=== PATIENT | female | born 1945 | race Caucasian/White ===

== ENCOUNTER 2018-09-19 09:48 | Inpatient (IN) | payer MEDICARE, OTHER ==
[2018-09-15 11:40] LABS: Basophils # (auto) 0.1 uL; Basophils % (auto) 0.9 % (0.0-2.0); Eosinophils # (auto) 0.2 uL; Eosinophils % (auto) 1.9 % (0.0-7.0); Hematocrit 41.1 % (36.0-46.0); Hemoglobin 13.7 g/dL (12.2-16.2); Lymphocytes % (auto) 37.8 % (10.0-50.0); Mean Corpuscular Hemoglobin 30.9 pg (28.0-32.0); Mean Corpuscular Hgb Conc. 33.3 g/dL (32.0-36.0); Mean Corpuscular Volume 92.8 fL (80.0-100.0); Monocytes # (auto) 0.5 uL; Monocytes % (auto) 6.7 % (0.0-12.0); Neutrophils # (auto) 4.3 uL; Neutrophils % (auto) 52.7 % (37.0-80.0); Nucleated Red Blood Cells % 0.1 %; Platelet Count (auto) 221 10^3/uL (140-450); Red Blood Cells 4.42 10^6/uL (4.0-5.20); Red Cell Distribution Width 14.8 % (11.8-14.3); White Blood Cell 8.1 10^3/uL (4.4-10.8)
[2018-09-15 11:45] LABS: Urine Bacteria FEW /hpf (None Seen); Urine Blood Negative /uL (Negative); Urine WBC 1 /hpf (0 - 5)
[2018-09-15 11:51] LABS: Partial Thromboplastin Time 26.3 sec (23.64-32.05)
[2018-09-15 11:56] LABS: Albumin 3.8 g/dL (3.4-5.0); Calcium 9.5 mg/dL (8.5-10.1)
[2018-09-15 11:59] LABS: BUN/Creatinine Ratio 23.2; Bilirubin, Total 0.6 mg/dL (0.2-1.0); Total Protein 7.8 g/dL (6.4-8.2)
[~2018-09-19] VITALS: Ht 162.6 cm; Wt 97.4 kg
[~2018-09-19 09:48] MED LIST: ALLO300T2 PO; ASPI-404 PO; CHLO25TA22 PO; DILT240C35 PO; ESTR0.3T PO; LEVO112T4 PO; METO-159 PO; PANT40TA2 PO; ROSU10TA16 PO; TELM20TA PO
[2018-09-19] MEDS ORDERED: ceFAZolin 1GM/50ML 100 ML IV ONE (10:22)
[2018-09-19] MEDS ORDERED: MIDAZOLAM HCL 1MG/1ML-2 ML VIAL ONE (10:51)
[2018-09-19] MEDS ORDERED: fentaNYL CITRATE 100 MCG/2 ML VL ONE (10:52)
[2018-09-19] MEDS ORDERED: LIDOCAINE HCL 2% TOP JELLY 5ML TOP ONE (10:53)
[2018-09-19] MEDS ORDERED: LIDOCAINE 2% (LOCAL ANESTH.) PF 5ml SDV ONE (10:53)
[2018-09-19] MEDS ORDERED: HYDROmorphone HCL 2 MG/ML VL ONE (11:43)
[2018-09-19] MEDS ORDERED: NALOXONE HCL 0.4 MG/ML VIAL ONE (14:01)
[2018-09-19] MEDS ORDERED: KETOROLAC TROMETH 30 MG/ML 1ML VIAL IV ONE (14:30)
[2018-09-19] MEDS ORDERED: ONDANSETRON HCL 4 MG/2 ML VIAL IV PRN (14:30)
[2018-09-19] MEDS ORDERED: hydrALAZINE HCL 20 MG/ML VL IV PRN (14:30)
[2018-09-19] MEDS ORDERED: ONDANSETRON HCL 4 MG/2 ML VIAL IM ONE (14:30)
[2018-09-19] MEDS ORDERED: MORPHINE SULF INJ 2 MG/ML SYRINGE 1ML IV PRN (14:30)
[2018-09-19] MEDS ORDERED: METOCLOPRAMIDE HCL 5MG/ml INJ 2ml VIAL IV ONE (14:30)
[2018-09-19] MEDS ORDERED: HYDROmorphone HCL 2 MG/ML VL IV PRN (14:30)
[2018-09-19] MEDS ORDERED: TEMAZEPAM 15 MG CAP PO PRN (14:30)
[2018-09-19] MEDS ORDERED: ePHEDrine SULFATE 50 MG/ML AMP IV PRN (14:45)
[2018-09-19] MEDS ORDERED: ACCU-CHEK COMFORT CURVE STRIP VI ONE (14:45)
[2018-09-19] MEDS ORDERED: LABETALOL HCL 5 MG/ML 4ML SYRINGE IV PRN (14:45)
[2018-09-19 15:30] VITALS: BP 117/62
--- NOTE | 2018-09-19 15:30 | NUR ---
Med Surg admit from [facility] admitted to medsurg/tele after SBAR received. Patient oriented to CHRIS LOWE RN primary RN, unit, room, bed. Patient is s/p total right knee arthroplasty. Patient has SHAYNA bandage to right knee. Patient is easy to arouse by calling name. Patient is slightly agitated, states she just wants to rest. at bedside, able to answer most of the admission questions. Patient is alert and oriented x4. Patient is on 3L Oxymizer , oxygen saturation 95%, Blood Pressure 117/62, Heart Rate 65, respirations 15. Patient has a Small catheter in place, patent and draining clear yellow urine. Patient has 20g IV to the right hand, saline locked. Reviewed plan of care with patient, patient verbalized understanding. Bed in low and locked position, call light within reach. Bed alarm on for safety. Will continue to monitor Q1 hour and PRN.
--- NOTE | 2018-09-19 15:32 | NUR ---
CPM Machine CPM machine ordered for patient. Per report from PACU nurse, CPM machine is not available today. Will endorse to shift production associate RN.
--- NOTE | 2018-09-19 15:40 | NUR ---
Incentive Spirometer Incentive Spirometer provided to patient, patient educated on how to use. Patient verbalized understanding.
[2018-09-19] MEDS ORDERED: MORPHINE SULFATE 4 MG/ML SYR/VIAL IV ONE (16:00)
[2018-09-19 17:36] VITALS: BP 110/54
[2018-09-19] MEDS: ceFAZolin 1GM/50ML 50 ML IV SCH ×2 (17:51→21:02)
[2018-09-19] MEDS: LACTATED RINGER'S 1,000 ML IV SCH (17:51)
--- NOTE | 2018-09-19 18:05 | NUR ---
Rounds Patient resting in bed awake, alert and oriented x4. No signs or symptoms of distress noted at this time. Patient denies pain at this. Patient is on 3L Oxymizer, patient denies shortness of breath at this time. Family at bedside. Bed alarm on for safety. Will continue to monitor Q1 hour and PRN.
--- NOTE | 2018-09-19 18:52 | NUR ---
Dinner Tray Patient did not receive dinner tray, contacted food and nutrition. Tray will be sent up.
--- NOTE | 2018-09-19 19:28 | NUR ---
Closing Note Report given to material handler 1st shift RN. No signs or symptoms of distress noted at this time.
--- NOTE | 2018-09-19 19:29 | NUR ---
Shift Opening note: Received report from RN Estefany and assumed care of patient. at the bedside.No c/o pain at this time but having nausea.Surgical site assessed of bleeding.Dressing dry ,clean and intact.Patient instructed on need to inform staff immediately for any pain, bleeding at surgical site. Patient verbalized understanding.
[2018-09-19 20:00] VITALS: BP_SYST 110; BP_SYST 113; BP_DIAS 47; BP_DIAS 49
[2018-09-19] MEDS: SODIUM CHLOR 0.9% PF (SALINE LOCK) 10ML VIAL/SYR IV SCH (21:03)
[2018-09-19] MEDS: oxyCODONE ER 10 MG TAB PO SCH (21:03)
[2018-09-19] MEDS: DOCUSATE SOD 100 MG CAP PO SCH (21:03)
[2018-09-19 21:06] VITALS: BP 113/49
[2018-09-19 22:00] VITALS: BP 113/49
[2018-09-20] VITALS (8 sets, daily range): BP systolic 101–140; BP diastolic 49–86
[2018-09-20] MEDS: THROAT LOZENGES(CEPASTAT) MT PRN ×2 (00:42→03:46)
[2018-09-20] MEDS: ceFAZolin 1GM/50ML 50 ML IV SCH (02:45)
[2018-09-20] MEDS: HYDROcodone-ACET 10/325MG TAB PO PRN ×2 (03:38→15:13)
--- NOTE | 2018-09-20 03:38 | NUR ---
Pain: Patient called c/o pain in her R hip, pain scale 7/10. [place] 10/325 1 tab PO administered.
[2018-09-20 06:36] LABS: Hematocrit 34.5 % (36.0-46.0); Hemoglobin 11.5 g/dL (12.2-16.2)
[2018-09-20] MEDS: SODIUM CHLOR 0.9% PF (SALINE LOCK) 10ML VIAL/SYR IV SCH ×3 (06:37→22:14)
[2018-09-20] MEDS: LACTATED RINGER'S 1,000 ML IV SCH (06:57)
--- NOTE | 2018-09-20 07:32 | NUR ---
Opening Shift Note Assumed care of patient, awake and alert. No S/S of distress/SOB or pain. Instructed on POC and to call for assist PRN, will continue to monitor for changes Q1hr and PRN.
--- NOTE | 2018-09-20 09:00 | NUR ---
CPM Per patient CPM machine delivered to house prior to admission with instructions. No CPM machine at bedside. Will call ortho department.
--- NOTE | 2018-09-20 09:50 | NUR ---
Oxygen Patient oxygen 94% on Oxymizer. Patient placed on 2L N/C. Patient educated on use of I.S., patient verbalized understanding.
[2018-09-20] MEDS: oxyCODONE ER 10 MG TAB PO SCH ×2 (09:54→22:00)
[2018-09-20] MEDS: ENOXAPARIN SOD 40 MG/0.4 ML SYRINGE SC SCH (09:54)
[2018-09-20] MEDS: DOCUSATE SOD 100 MG CAP PO SCH ×2 (09:54→22:14)
[2018-09-20] MEDS: ACETAMINOPHEN 325 MG TAB PO PRN (09:55)
--- NOTE | 2018-09-20 10:09 | NUR ---
IV removal IV site to right wrist infiltrated, swollen. IV line DC'd with clean sterile technique, catheter fully intact. Pressure dressing applied to site. Patient tolerated well. NOTE: Patient refuses IV restart at this time. Patient drinking water. Orders to D/C fluids once patient tolerating PO fluids. Will inform MD of patients request to have IV D/C.
--- NOTE | 2018-09-20 13:25 | NUR ---
ORTHO/CPM Phone message left with ortho department for CPM machine.
--- NOTE | 2018-09-20 14:30 | NUR ---
MD HARRIS/S.S. Dr Lancaster and firestop/containment worker Nathalia at bedside.
--- NOTE | 2018-09-20 14:50 | NUR ---
CPM MACHINE Spoke with Negrito from Ortho department in regards to CPM Machine. Negrito states he will be bring in machine shortly.
--- NOTE | 2018-09-20 15:09 | NUR ---
IV insertion IV access obtained, via clean sterile technique by inserting 22 gauge catheter at right FA after 1 attempt. IV secured properly. No trauma to site. Patient tolerated well.
--- NOTE | 2018-09-20 18:20 | NUR ---
Patient placed on CPM machine by Negrito from Ortho as ordered. Patients family at bedside. Patient requesting IV pain medication for pain to right knee 09/25. Will medicate as ordered.
--- NOTE | 2018-09-20 18:33 | NUR ---
DR ALEXANDER BEDSIDE.
[2018-09-20] MEDS: HYDROmorphone HCL 2 MG/ML VL IV PRN ×2 (18:46→22:16)
--- NOTE | 2018-09-20 20:30 | NUR ---
Patient called c/o discomfort in her R lower ext . Patient unable to tolerate the CPM and requesting to stop the machine for now and will put it back later. Will continue to monitor.
[2018-09-21 05:00] VITALS: BP 141/62
[2018-09-21] MEDS: SODIUM CHLOR 0.9% PF (SALINE LOCK) 10ML VIAL/SYR IV SCH ×3 (06:15→22:12)
[2018-09-21 06:16] LABS: Hematocrit 33.8 % (36.0-46.0); Hemoglobin 11.6 g/dL (12.2-16.2)
[2018-09-21] MEDS: LEVOTHYROXINE SODIUM 112 MCG TAB PO SCH (06:17)
[2018-09-21 06:30] LABS: BUN/Creatinine Ratio 22.4; Potassium 3.6 mmol/L (3.5-5.1)
--- NOTE | 2018-09-21 07:00 | NUR ---
Patient put back on CPM. Patient requesting pain medication . Having pain in her lower back , R knee , R leg with pain scale 9/10. Will medicate patient for pain. Will give report to incoming RN.
--- NOTE | 2018-09-21 07:16 | NUR ---
Shift Change Report received from NOC RN. Patient placed on CPM and medicated for pain by NOC RN. Call light in reach.
[2018-09-21] MEDS: HYDROcodone-ACET 10/325MG TAB PO PRN (07:28)
--- NOTE | 2018-09-21 08:15 | NUR ---
ROUNDS Patient tolerating CPM well, pain 4/10 at tolerable level for patient. Family at bedside.
[2018-09-21 09:00] VITALS: BP 141/65
[2018-09-21] MEDS: PANTOPRAZOLE 40 MG TAB PO SCH (09:04)
[2018-09-21] MEDS: DOCUSATE SOD 100 MG CAP PO SCH ×2 (09:04→22:05)
[2018-09-21] MEDS: ENOXAPARIN SOD 40 MG/0.4 ML SYRINGE SC SCH (09:04)
[2018-09-21] MEDS: ALLOPURINOL 300 MG TAB PO SCH (09:04)
--- NOTE | 2018-09-21 09:15 | NUR ---
DRESSING CHANGE Patients CPM machine removed. Dressing to right lower ext completed as ordered. Patient tolerated well, denies any pain. Right leg elevated with pillow and ice pack placed. Assisted patient to finish breakfast tray. Call light in reach.
[2018-09-21] MEDS: oxyCODONE ER 10 MG TAB PO SCH ×2 (10:37→22:05)
--- NOTE | 2018-09-21 11:30 | NUR ---
PHYSICAL THERAPY Patient ambulated to doorway and was returned to CPM machine by P.T.
[2018-09-21 13:00] VITALS: BP 137/70
--- NOTE | 2018-09-21 13:40 | NUR ---
CPM removed. Patient denies pain at this time.
--- NOTE | 2018-09-21 13:45 | NUR ---
PILLS AT BEDSIDE Three pills found on bedside table. Patients states they are her "blood pressure pills". Educated patient on safety risks and policies. Informed patient medication should only be given with approval of MD and family should take medication home. Dr Lancaster made aware of med rec with rounds and put in orders.
--- NOTE | 2018-09-21 14:44 | NUR ---
re-assessment Per consult placement at [facility]. Patient informed me she agrees to [facility] on discharge. MD order has been sent to [facility]. Per Alden at [facility] [phone] patient will be admitted to room [address] Segura is the accepting MD. Patient has been notified. Waiting for discharge now. Addendum: 09/22/18 at 1147 by Nathalia Matute Amended: Links added.
[2018-09-21 16:56] VITALS: BP 110/58
--- NOTE | 2018-09-21 17:04 | NUR ---
REPOSITIONED Patient complains of lower back back. Patient turned, pillow and heat pack placed to lower back. Patient request Tylenol for pain. Will medicate as ordered.
[2018-09-21] MEDS: ACETAMINOPHEN 325 MG TAB PO PRN (17:07)
[2018-09-21 20:00] VITALS: BP 155/72
--- NOTE | 2018-09-21 20:00 | NUR ---
Patient refused CPM . Patient said she want to sleep tonight. Will continue to monitor.
[2018-09-21 22:00] VITALS: BP 139/65
[2018-09-22] MEDS: HYDROcodone-ACET 10/325MG TAB PO PRN (00:39)
[2018-09-22 04:45] VITALS: BP 124/56
--- NOTE | 2018-09-22 06:00 | NUR ---
Patient refused CPM at this time. Per patient she will use CPM later after breakfast.
[2018-09-22 06:21] LABS: Hemoglobin 11.3 g/dL (12.2-16.2)
[2018-09-22] MEDS: SODIUM CHLOR 0.9% PF (SALINE LOCK) 10ML VIAL/SYR IV SCH ×2 (06:32→13:35)
[2018-09-22] MEDS: LEVOTHYROXINE SODIUM 112 MCG TAB PO SCH (06:32)
--- NOTE | 2018-09-22 07:40 | NUR ---
PATIENT ROUNDS PATIENT SITTING IN BED NO DISTRESS NOTED, BED IN LOWEST POSITION, SIDE RAILS UP X2, CALL LIGHT WITHIN REACH. ALL QUESTIONS AND CONCERNS ADDRESSED. PATIENT ENCOURAGED TO CALL IF THEY NEED ANYTHING. WILL CONTINUE TO MONITOR AND INITIATE POC. STUDENT MARITIME ENGINEER JULY ASSISTING WITH POC.
[2018-09-22 09:00] VITALS: BP 141/59
[2018-09-22] MEDS ORDERED: DILTIAZEM HCL 120MG ER CAP PO SCH (10:00)
--- NOTE | 2018-09-22 10:00 | NUR ---
PT PATIENT AMBULATING WITH WALKER AND PHYSICAL THERAPIST IN HALLWAY, GAIT STEADY, NO DISTRESS NOTED.
--- NOTE | 2018-09-22 11:38 | NUR ---
assessment Patient is a 73 year old female who is alert and oriented. Prior to admission patient lived home with her family and functioned independently. Patient was admitted for right knee replacement. Patient has a fww, and bedside commode for home use. Patient informed me her CPM has already been delivered to her home. Patient may need home health for PT or SNF on discharge. I informed patient we will see how she does with PT once she is up and ambulating. Patient verbalized understanding. Will continue to monitor. Addendum: 09/22/18 at 1143 by Nathalia VILCHIS Amended: Links added.
[2018-09-22] MEDS: ALLOPURINOL 300 MG TAB PO SCH (12:33)
[2018-09-22] MEDS: PANTOPRAZOLE 40 MG TAB PO SCH (12:33)
[2018-09-22] MEDS: ENOXAPARIN SOD 40 MG/0.4 ML SYRINGE SC SCH (12:33)
[2018-09-22] MEDS: DOCUSATE SOD 100 MG CAP PO SCH (12:34)
[2018-09-22] MEDS: oxyCODONE ER 10 MG TAB PO SCH (12:34)
[2018-09-22 13:00] VITALS: BP 145/66
--- NOTE | 2018-09-22 14:00 | NUR ---
Mae catheter dc'd Order to discontinue mae catheter. Mae dc'd with clean technique following deflation of balloon. Patient tolerated well with no complaints of pain. Continue care.
--- NOTE | 2018-09-22 14:15 | NUR ---
IV removal IV DC'd with clean sterile technique, catheter fully intact. Pressure dressing applied to site. Patient tolerated well. NOTE:
--- NOTE | 2018-09-22 16:30 | NUR ---
re-assessment Patient is now discharged. Nick NELSON pt has been accepted to room 206-[address] MD [address] Segura. General Transport to /u pt between [id number]. Reported to Kate BRINK. Pt agrees to discharge plan to [facility]. Addendum: 09/22/18 at 1632 by Nathalia Matute SS Amended: Links added.
[2018-09-22 17:09] VITALS: BP 119/46
--- NOTE | 2018-09-22 17:20 | NUR ---
Discharge instructions given as ordered. Encourage to follow up with PMD as instructed. All questions and concerns addressed. Patient verbalized understanding. Medication reconciliation form completed and copy given to patient. IV removed with catheter intact, pressure dressing applied, mae catheter removed. Patient taken to vehicle via wheelchair with all personal belongings, accompanied by general transportation staff and family member. No distress noted at time of departure.
== END 2018-09-22 17:20 | DRG 470 ==
LOC: SUR 09:48 → WEST WING 16:19
PROVIDERS: ADMIT Pediatrics; ATTEND Internal Medicine
PROC: 0MBN0ZZ Excision of Right Knee Bursa and Ligament, Open Approach (ICD-10-PCS; 2018-09-19)
PROC: 0SRC0JZ Replacement of Right Knee Joint with Synthetic Substitute, Open Approach (ICD-10-PCS; principal; 2018-09-19 11:04)
DX: M17.11 Unilateral primary osteoarthritis, right knee (principal); E03.9 Hypothyroidism, unspecified; M10.9 Gout, unspecified; E66.9 Obesity, unspecified; N18.3 Chronic kidney disease, stage 3 (moderate); I25.10 Atherosclerotic heart disease of native coronary artery without angina pectoris; I12.9 Hypertensive chronic kidney disease with stage 1 through stage 4 chronic kidney disease, or unspecified chronic kidney disease; Z68.36 Body mass index [BMI] 36.0-36.9, adult; Z88.8 Allergy status to other drugs, medicaments and biological substances
CPT/HCPCS: 36415; 73562; 80048; 80053; 81001; 85014; 85018; 85025; 85610; 85730; 86850; 86900; 86901; 97110; 97116; 97163; 97530; G0378; J0690; J1885; J2001; J2250; J2405